=== PATIENT | female | born 1970 | race Caucasian/White ===

== ENCOUNTER → 2016-12-16 | Outpatient (CLI) | payer OTHER ==
[~2016-12-16] MED LIST: AZIT250T6 PO; CALC-586 PO; CALC0.5C3 PO; GUAI120015 PO; IBUP100T8 PO; IOHEXOL 180 MG/ML 20ml INJECTION ONE; LEVO100T83 PO; LIDOCAINE 1% (10mg/ml) 5ml VIAL ONE; METO25TA27 PO; MethylPREDNISolone ACETATE 40mg/1ml ONE; PRED20TA PO; QUET25TA73 PO
--- NOTE | 2016-12-16 16:23 | DI ---
Indication:ITS.REASON: M48.00 Spinal stenosis, site unspecified Procedure:EPIDURAL INJ.SPINE W FLUO CATH LUMBAR EPIDURAL INJECTION: The patient has low back and radicular pain. The patient has had a previous epidural that provided excellent relief. The details of the procedure, including the benefits, risks, and alternatives were explained to the patient. All of their questions were answered. They stated that they understood and wished to proceed. Informed consent was then obtained. A pre-procedural timeout was performed to confirm the correct patient and procedure. Utilizing aseptic technique, local lidocaine anesthetic, and fluoroscopic guidance throughout, a 22-gauge spinal needle was directed into the lumbar epidural space via an interlaminar approach at the L5-S1 level. Contrast was injected to assure proper positioning of the needle tip. A fluoroscopic image was then taken and archived. Subsequently, 120 mg Depo-Medrol was injected into the epidural space. The patient tolerated the procedure well. IMPRESSION: Successful lumbar epidural steroid injection. Fluoroscopy dose: 10.03 mGy (Cumulative air kerma) Cesar Thomason RPA/UMM performed this under my personal supervision. .
== END ==
LOC: IMA 14:05
PROVIDERS: ATTEND Internal Medicine
DX: M48.00 Spinal stenosis, site unspecified (principal); M54.5 Low back pain
CPT/HCPCS: 62323; J1030; Q9965

== ENCOUNTER → 2017-02-06 | Outpatient (CLI) | payer OTHER ==
[~2017-02-06] MED LIST changes: -IOHEXOL 180 MG/ML 20ml INJECTION ONE; -LIDOCAINE 1% (10mg/ml) 5ml VIAL ONE; -MethylPREDNISolone ACETATE 40mg/1ml ONE
== END ==
LOC: LAB 15:38
PROVIDERS: ATTEND Internal Medicine
DX: I10 Essential (primary) hypertension (principal)
CPT/HCPCS: 36415; 84439; 84443

== ENCOUNTER → 2017-02-20 | Outpatient (CLI) | payer OTHER ==
[2017-02-20 16:31] LABS: ALBUMIN 4.7 G/DL (3.5-5.0); ALBUMIN/GLOBULIN RATIO 1.5 RATIO (1.1-2.2); ALKALINE PHOSPHATASE 76 U/L (38-126); ALT (SGPT) 29 U/L (9-52); ANION GAP 16 MEQ/L (5-15); AST (SGOT) 23 U/L (14-36); BUN/CREATININE RATIO 11 RATIO (6-26); CALCIUM 10.2 MG/DL (8.4-10.2); CHLORIDE 105 MEQ/L (98-107); CO2 - CARBON DIOXIDE 25 MEQ/L (22-30); CREATININE 1.5 MG/DL (0.7-1.2); GLOMERULAR FILTRATION RATE 37; GLUCOSE 96 MG/DL (65-110); POTASSIUM 4.5 MEQ/L (3.6-5); SODIUM 146 MEQ/L (134-144); TOTAL PROTEIN 7.9 G/DL (6.3-8.2)
== END ==
LOC: LAB 16:04
PROVIDERS: ATTEND Internal Medicine
DX: I10 Essential (primary) hypertension (principal)
CPT/HCPCS: 36415; 80053

== ENCOUNTER 2017-06-02 23:32 | Observation (INO) ==
[2017-06-03] MEDS ORDERED: ONDANSETRON 4 MG/2 ML INJECTION IV ONE (00:25)
[2017-06-03] MEDS ORDERED: NS 1,000 ML IV ONE (00:25)
--- NOTE | 2017-06-03 00:26 | Emergency Department Report ---
General Adult HPI - General Chief complaint: Nausea/Vomiting/Diarrhea Stated complaint: Throwing Up Time Seen by Provider: 06/03/17 00:16 Source: patient Mode of arrival: ambulatory Limitations: no limitations - History of Present Illness HPI narrative: 46-year-old female presents to the emergency department with a chief complaint of nausea, vomiting, and diarrhea. Patient noted onset of symptoms approximately 9 PM today. Patient denies any trauma, travel, poorly prepared food, or recent antibiotic use. Patient states that she has had "multiple" episodes of nonbloody nonbilious emesis. Patient has also had "a couple" episodes of nonbloody non-mucous containing diarrhea stool. She denies any pain or discomfort. Patient states that her symptoms have been persistent in nature since onset. Patient was at home when her symptoms began. She does not note any exacerbating or remitting factors. No other complaints or associated symptoms. - Related Data Home Medications Medication Instructions Recorded Confirmed Calcium Carbonate/Vitamin D3 2,400 mg PO DAILY #0 tab 12/29/13 06/03/17 (Calcium + D 600 Mg Tablet) Levothyroxine Tab [Synthroid] 100 mcg PO ACB #0 tab 12/29/13 06/03/17 Metoprolol Succinate 50 mg PO DAILY #0 12/29/13 06/03/17 Ibuprofen 1 tab PO Q4H PRN #0 tab 08/18/16 06/03/17 Quetiapine Fumarate 12.5 mg PO DAILY #0 tab 08/18/16 06/03/17 Buspirone [Buspar] 5 mg PO BID 06/03/17 06/03/17 Calcitriol [Rocaltrol] 0.25 mcg PO DAILY 06/03/17 06/03/17 Calcitriol [Rocaltrol] 0.5 mcg PO DAILY 06/03/17 06/03/17 Chlorthalidone 10 mg PO 06/03/17 Allergies Allergy/AdvReac Type Severity Reaction Status Date / Time Penicillins Allergy Unknown Verified 06/03/17 01:16 Review of Systems Constitutional: Denies: fever, weakness Eyes: Denies: eye pain, vision change ENT: Denies: ear pain, throat pain Cardiovascular: Denies: chest pain, palpitations Respiratory: Denies: cough, dyspnea Gastrointestinal: Reports: nausea, vomiting, diarrhea. Denies: abdominal pain Genitourinary: Denies: urgency, dysuria Musculoskeletal: Denies: back pain, arthralgia Integumentary: Denies: erythema, rash Neurological: Denies: headache, numbness Psychiatric: Denies: anxiety, depression Endocrine: Denies: fatigue, heat or cold intolerance Hematological/Lymphatic: Denies: easy bleeding, easy bruising Allergic/Immunologic: Denies: facial swelling, urticaria PFSH Patient Stated Medical History Hypertension Yes Other Yes: HYPOCALCEMIA, TUMMY TUCK Surgical History: ANES Surgical History: Reports: Abdominal (TUMMY TUCK 2011), Endocrine (THYROIDECTOMY 2005), Other Surgeries (WISDOM TEETH EXTRACTION, COLONOSCOPY 2007), Reproductive (DIAG LAP, HYSTEROSCOPY WITH ABLATION PER HISTORY, HYSTERECTOMY 2013), Family History: Reviewed and noncontributory. - Social History Smoking status: Never smoker Substance use type: does not use Alcohol intake frequency: does not drink Physical Exam - Limitations Limitations: no limitations - General General appearance: alert, in no apparent distress - Normal Exams: Head:: Normocephalic without trauma Eyes:: Pupils are PERRLA w/ EOMI, No scleral icterus, irritation, or foreign bodies noted ENMT:: No facial trauma, nasal exudates, pharyngeal erythema, or exudates are noted Dental: No fractured, loose, or missing teeth noted Neck:: Full range of motion, without adenopathy, JVD, bruits or thyromegaly Chest/Respirations:: Clear all poole, with good airflow, and symmetry bilaterally Cardiovascular:: Regular rate and rhythm, without murmur or gallop, Pulses 2+ all extremities, capillary refill, <2 seconds all extremities Abdomen:: Bowel sounds positive, soft, non-tender, non-distended, no hepatosplenomegaly, masses or bruits noted Lymphatic:: No lymphadenopathy, or lymphedema noted Musculoskeletal:: No tenderness, or deformity noted, good range of motion, all extremities Integumentary:: No rashes, hives, or bruising noted, hair and nails, without abnormality Neurological:: Patient is alert, and oriented, cranial nerves, motor/sensory/ cerebellar, exams w/o gross deficits, to observation Psychiatric:: Patient exhibits, appropriate attention, emotion and affect Course Vital Signs Temperature 98.0 F 06/03/17 00:00 Pulse Rate 80 06/03/17 00:00 Respiratory Rate 12 06/03/17 00:00 Blood Pressure 142/82 H 06/03/17 00:00 Pulse Oximetry 98 06/03/17 00:00 Temperature 97.8 F 06/03/17 03:35 Pulse Rate 93 06/03/17 03:35 Respiratory Rate 20 06/03/17 03:35 Blood Pressure 119/72 06/03/17 03:35 Pulse Oximetry 97 06/03/17 03:35 Medical Decision Making - MDM Narrative Medical decision making narrative: Labs are discussed in detail with the patient and family and questions are answered. Patient is given 1 L normal saline intravenously in the emergency Department. Patient is given a 2nd liter at 150 mL an hour. Patient is discussed with Dr. Valdez due to the acute kidney injury and hypercalcemia will be admitted to his service in improved condition. Patient and family are in agreement with the current plan of management. Patient is admitted to the hospital in improved condition. No further orders from accepting physician who is in agreement with the current plan of management. - Differential Diagnosis gastroenteritis, viral syndrome, metabolic disorder, diarrhea - Lab Data Result diagrams: 06/03/17 00:59 Lab Results 06/03/17 Range/Units 00:59 Turbidity < 20 (0-20) Sodium 141 (134-144) MEQ/L Potassium 3.1 L (3.6-5) MEQ/L Chloride 98 (98-107) MEQ/L Carbon Dioxide 29 (22-30) MEQ/L Anion Gap 14 (5-15) MEQ/L BUN 20.0 H (7-17) MG/DL Creatinine 1.7 H (0.7-1.2) MG/DL GFR Calculation 32 BUN/Creatinine Ratio 12 (6-26) RATIO Glucose 128 H (65-110) MG/DL Calculated Osmolality 276 (261-280) MOSM/KG Calcium 13.9 H* (8.4-10.2) MG/DL Icterus Index < 2 (0-7) Specimen Hemolysis < 15 (0-25) Critical Care Time Critical Care Time: Yes Total Critical Care Time: 47 Attestation: 47 minutes of critical care time was assessed to the patient due to the calcium level of 13.9 and acute kidney injury. Patient required complex medical decision-making, repeated assessment at the bedside, and potential for decompensation. 47 minutes of critical care time was spent treating the patient , documenting the medical record, making phone calls on the patient's behalf, and discussing with family. Disposition Clinical Impression: Dehydration, MEME (acute kidney injury), Hypercalcemia Disposition: 02 To [facility] Condition: Stable Time of Disposition: 00:35 (Admit. Dr. Valdez. ) - Seen By: physician
[2017-06-03] MEDS: SALINE FLUSH 10ml SYRINGE IVF PRN ×2 (00:57→03:47)
[2017-06-03 03:38] VITALS: BMI 28.3
[2017-06-03] MEDS: NS 1,000 ML IV SCH ×4 (03:48→23:55)
[2017-06-03] MEDS ORDERED: ONDANSETRON 4 MG/2 ML INJECTION IVP PRN (19:32)
[2017-06-03] MEDS ORDERED: PROMETHAZINE 25 MG INJECTION IVP PRN (19:33)
[2017-06-03] MEDS: ACETAMINOPHEN 325 MG TABLET PO PRN (20:06)
[2017-06-04] MEDS: NS 1,000 ML IV SCH (06:31)
[2017-06-04 08:17] VITALS: BP 125/89; PULSE 76; RESP 18; TEMP 97.4; O2SAT 98
[2017-06-04] MEDS: ACETAMINOPHEN 325 MG TABLET PO PRN (10:47)
--- NOTE | 2017-06-04 13:22 | History & Physical Update ---
- History and Physical Update Date: 06/04/17 Update: I evaluated this patient and found no changes in the history and clinical exam findings. The treatment plan and recommendations are also unchanged from the previous documentation. Alcira was admitted to the ER with nausea, vomiting, diarrhea that began the night before admission. She states that she hasn't eaten anything out of her usual diet. No other sick contacts at home.
--- NOTE | 2017-06-04 13:25 | Discharge Summary ---
Discharge Information Date of admission: 06/03/17 03:11 Anticipated date of discharge: 06/04/17 Attending Physician: Asael Valdez DO Primary care physician: Asael Valdez DO - Laboratory Labs: 06/04/17 08:57 06/04/17 08:57 History of Present Illness HPI: 06/04/17 13:22 Alcira was admitted to the ER with nausea, vomiting, diarrhea that began before admission. There were no other sick contacts in her home. She indicates that she is not eating anything out of side of her usual diet. She denies any blood in the stool or emesis. Hospital Course This is a general summary of the patient's hospital course. For more details refer to the complete medical record. Upon admission her creatinine and serum calcium were both quite elevated. This was evidence of her significant dehydration. She was started on a clear liquid diet the night after admission and seems to have tolerated it well. She still has some mild low-grade nausea but no vomiting no diarrhea. With IV fluid hydration her kidney function has returned to normal and her serum calcium level is back to normal. I will discharge her home today and have her increase her diet slowly. She will stop by the office for a prescription of ondansetron for nausea. Further I will have her decrease her oral calcium supplementation to 1200 mg daily Time spent with patient: 25 - 35 minutes Discharge Plan - Med Rec/Dispo Kristine Instructions: Dehydration (GEN), Hypercalcemia (GEN) Prescriptions: Continue Levothyroxine Tab [Synthroid] 100 mcg PO ACB #0 tab Ibuprofen 1 tab PO Q4H PRN #0 tab PRN Reason: Pain Calcitriol [Rocaltrol] 0.25 mcg PO DAILY Buspirone [Buspar] 5 mg PO BID Chlorthalidone 10 mg PO Metoprolol Succinate 50 mg PO DAILY #0 Quetiapine Fumarate 12.5 mg PO DAILY #0 tab Calcitriol [Rocaltrol] 0.5 mcg PO DAILY Changed Calcium Carbonate/Vitamin D3 (Calcium + D 600 Mg Tablet) 1,200 mg PO DAILY # 0 tab
== END 2017-06-04 14:00 | disposition home or self-care (01) ==
LOC: MED 23:32 → ED 23:32 → MED 06-03 03:25
PROVIDERS: ADMIT Internal Medicine; ATTEND Internal Medicine